=== PATIENT | male | born 1995 | race Caucasian/White ===

== ENCOUNTER 2023-12-31 06:12 | Day surgery (SDC) | payer SELFPAY ==
[2023-12-24 15:17] VITALS: BMI 27.2
[2023-12-31] MEDS ORDERED: EPINEPHrine/PF 1 MG/1 ML (1:1,000) AMPULE ONE (07:36)
[2023-12-31] MEDS ORDERED: BACITRACIN ZINC 15 GM TUBE TOPICAL OINTMENT ONE (07:36)
[2023-12-31] MEDS ORDERED: LIDOCAINE HCL 1%, 10 MG/ML (20ML VIAL) ONE (07:36)
[2023-12-31] MEDS ORDERED: LIDOCAINE HCL 2% 100 MG/5 ML DISP.SYRIN ONE (07:40)
[2023-12-31] MEDS ORDERED: ceFAZolin SODIUM 1 GM VIAL ONE (07:40)
[2023-12-31] MEDS ORDERED: PROPOFOL 40 ML ONE (07:40)
[2023-12-31] MEDS ORDERED: MIDAZOLAM HCL 2 MG/2 ML SINGLE DOSE VIAL ONE (07:40)
[2023-12-31] MEDS ORDERED: ROCURONIUM BROMIDE 50 MG/5 ML SYRINGE ONE (07:40)
[2023-12-31] MEDS ORDERED: DEXAMETHASONE SOD PHOSPHATE 4 MG/1 ML VIAL ONE (07:40)
[2023-12-31] MEDS ORDERED: ONDANSETRON 4 MG/2 ML VIAL ONE (07:40)
[2023-12-31] MEDS ORDERED: ePHEDrine SULFATE 50 MG/1 ML AMPULE ONE (07:41)
[2023-12-31] MEDS ORDERED: ONDANSETRON 4 MG/2 ML VIAL IVPUSH PRN (08:11)
[2023-12-31] MEDS ORDERED: oxyCODONE HCL 5 MG TABLET PO PRN (08:11)
[2023-12-31] MEDS ORDERED: LACTATED RINGERS SOLUTION 1,000 ML IV SCH (08:15)
[2023-12-31] MEDS ORDERED: ACETAMINOPHEN INJECTION 100 ML IVPB ONE (08:30)
[2023-12-31] MEDS ORDERED: GLYCOPYRROLATE 0.2 MG/1 ML VIAL ONE (10:03)
[2023-12-31] MEDS ORDERED: NEOSTIGMINE METHYLSULFATE 0.5 MG/1 ML - 10 ML MDV ONE (10:04)
[2023-12-31 13:09] VITALS: RESP 18; TEMP 97.9
[2023-12-31 13:19] VITALS: BP 110/62; PULSE 61
== END 2023-12-31 13:00 | disposition home or self-care (01) ==
LOC: FASU 06:12
PROVIDERS: ATTEND Surgery
CPT/HCPCS: 94760; J0131